=== PATIENT | male | born 1980 | race African-American/Black ===

== ENCOUNTER 2018-05-17 21:17 | Emergency (ER) | payer OTHER ==
[~2018-05-17] VITALS: Ht 188 cm; Wt 105.2 kg
[2018-05-17 21:24] VITALS: Ht 188 cm; Wt 105.2 kg
[2018-05-17 22:27] VITALS: BP 144/82
== END 2018-05-17 22:27 | disposition left against medical advice (07) ==
LOC: ED 21:17
DX: L23.9 Allergic contact dermatitis, unspecified cause (principal); R00.0 Tachycardia, unspecified
CPT/HCPCS: 82962; Q0092